=== PATIENT | female | born 1980 | race Caucasian/White ===

== ENCOUNTER 2022-09-13 11:15 | Outpatient (CLI) | payer MEDICAID ==
[2022-09-13 17:40] LABS: BASOPHILS % (AUTO) 0.4 %; EOSINOPHILS # (AUTO) 0.1 10^3/uL (0.0-0.7); EOSINOPHILS % (AUTO) 0.9 %; HCT - HEMATOCRIT 43.3 % (37.0-47.0); HGB - HEMOGLOBIN 13.9 g/dL (12.0-16.0); LYMPHOCYTES # (AUTO) 4.2 10^3/uL (1.5-3.5); LYMPHOCYTES % (AUTO) 40.8 %; MEAN CORPUSCULAR HEMOGLOBIN 30.3 pg (27.0-31.0); MEAN CORPUSCULAR HGB CONC 32.1 g/dL (32.0-36.0); MEAN CORPUSCULAR VOLUME 94.5 fL (81.0-99.0); MEAN PLATELET VOLUME 10.3 fL (7.9-10.8); MONOCYTES # (AUTO) 0.6 10^3/uL (0.0-1.0); MONOCYTES % (AUTO) 6.1 %; NEUTROPHILS # (AUTO) 5.3 10^3/uL (1.5-6.6); NEUTROPHILS % (AUTO) 51.6 %; PLT - PLATELET COUNT 312 10^3/uL (130-450); RED BLOOD COUNT 4.58 10^6/uL (4.20-5.40); RED CELL DISTRIBUTION WIDTH 14.6 % (12.0-15.0); WHITE BLOOD COUNT 10.2 x10^3/uL (4.8-10.8)
[2022-09-13 17:46] LABS: ALBUMIN 3.8 g/dL (3.2-5.5); BILIRUBIN,TOTAL 0.3 mg/dL (0.2-1.0); CALCIUM 9.1 mg/dL (8.5-10.3); TOTAL PROTEIN 7.5 g/dL (6.7-8.2)
== END 2022-09-13 11:30 | disposition home or self-care (01) ==
LOC: LAB.N 11:15
PROVIDERS: ATTEND Physician Assistant
DX: R22.0 Localized swelling, mass and lump, head (principal)
CPT/HCPCS: 36415; 80053; 83690; 85025

== ENCOUNTER 2022-12-17 07:05 | Outpatient (CLI) | payer MEDICAID | END 2022-12-17 23:59 | disposition short-term general hospital (02) | LOC: EMS 07:05 | DX: K62.5 Hemorrhage of anus and rectum (principal); R42 Dizziness and giddiness; R55 Syncope and collapse | CPT/HCPCS: A0425; A0429; A0999 ==

== ENCOUNTER 2023-08-25 13:28 | Outpatient (CLI) | payer MEDICAID | END 2023-08-25 23:59 | disposition critical access hospital (66) | LOC: EMS 13:28 | DX: R10.12 Left upper quadrant pain (principal); R10.32 Left lower quadrant pain; R10.812 Left upper quadrant abdominal tenderness; R10.814 Left lower quadrant abdominal tenderness; R11.0 Nausea | CPT/HCPCS: A0425; A0427; A0999 ==

== ENCOUNTER 2023-08-25 13:45 | Emergency (ER) | payer MEDICAID ==
[2023-08-25] MEDS ORDERED: SODIUM CHLORIDE 0.9% 1,000 ML IV STA (14:05)
[2023-08-25] MEDS ORDERED: MORPHINE 2 MG/ML CARPUJECT IVP STA (14:05)
[2023-08-25 14:11] LABS: BASOPHILS % (AUTO) 0.2 %; EOSINOPHILS # (AUTO) 0.5 10^3/uL (0.0-0.7); EOSINOPHILS % (AUTO) 6.6 %; HCT - HEMATOCRIT 37.8 % (37.0-47.0); HGB - HEMOGLOBIN 12.1 g/dL (12.0-16.0); LYMPHOCYTES # (AUTO) 3.6 10^3/uL (1.5-3.5); LYMPHOCYTES % (AUTO) 44.6 %; MEAN CORPUSCULAR HEMOGLOBIN 29.4 pg (27.0-31.0); MEAN PLATELET VOLUME 9.7 fL (7.9-10.8); MONOCYTES # (AUTO) 0.4 10^3/uL (0.0-1.0); NEUTROPHILS # (AUTO) 3.5 10^3/uL (1.5-6.6); NEUTROPHILS % (AUTO) 43.4 %; PLT - PLATELET COUNT 252 10^3/uL (130-450); RED BLOOD COUNT 4.11 10^6/uL (4.20-5.40); RED CELL DISTRIBUTION WIDTH 13.7 % (12.0-15.0); WHITE BLOOD COUNT 8.1 x10^3/uL (4.8-10.8)
[2023-08-25] MEDS ORDERED: ONDANSETRON 4 MG/2 ML VIAL IVP STA (14:19)
[2023-08-25 14:22] LABS: BILIRUBIN,URINE NEGATIVE (NEGATIVE); GLUCOSE, URINE (UA) NEGATIVE (NEGATIVE); KETONES,URINE (UA) NEGATIVE (NEGATIVE); LEUKOCYTE ESTERASE, URINE NEGATIVE (NEGATIVE); NITRITE,URINE NEGATIVE (NEGATIVE); OCCULT BLOOD,URINE NEGATIVE (NEGATIVE); PROTEIN,URINE NEGATIVE (NEGATIVE); UROBILINOGEN,URINE 0.2 (NORMAL) E.U./dL (NORMAL)
[2023-08-25 14:23] LABS: CLARITY,URINE CLEAR (CLEAR)
[2023-08-25 14:25] LABS: ALBUMIN 3.6 g/dL (3.2-5.5); ALBUMIN/GLOBULIN RATIO 1.3 (1.0-2.2); BILIRUBIN,TOTAL 0.2 mg/dL (0.2-1.0); CALCIUM 8.9 mg/dL (8.5-10.3); POTASSIUM 3.9 mmol/L (3.5-4.5); TOTAL PROTEIN 6.4 g/dL (6.4-8.9)
[2023-08-25] MEDS ORDERED: iohexoL-300 100 ML VIAL ONE (14:40)
--- NOTE | 2023-08-25 14:57 | ED Physician Documentation ---
PD HPI ABD PAIN - Stated complaint Stated Complaint: LLQ ABD PX - Chief complaint Chief Complaint: Abd Pain - History obtained from History obtained from: Patient - Additional information Additional information: Patient is a 43-year-old female presenting for evaluation of left-sided abdominal pain starting after lunch today. Patient states having a ham and cheese for lunch. She has associated nausea. She reports having nausea in the morning for the last few days. Denies any known sick contacts. Reports feeling feverish yesterday morning. No cough, congestion, chest pain or shortness of air. Denies dysuria. No hematuria or vaginal discharge. Has a history of a tubal ligation. Denies other abdominal surgeries. EMS administered IV Toradol and Zofran. Review of Systems Constitutional: reports: Fever Cardiac: denies: Chest pain / pressure Respiratory: denies: Dyspnea GI: reports: Abdominal Pain, Nausea. denies: Vomiting : denies: Dysuria PD PAST MEDICAL HISTORY - Present Medications Home Medications: Ambulatory Orders Medication Instructions Recorded Confirmed Ondansetron Odt [Zofran] 4 mg TL Q6H PRN #10 tablet 08/25/23 polyethylene glycoL 3350 [Miralax] 17 gm PO DAILY PRN #14 packet 08/25/23 - Allergies Allergies/Adverse Reactions: Allergies Allergy/AdvReac Type Severity Reaction Status Date / Time amoxicillin AdvReac Unknown Verified 08/25/23 13:56 Sulfa (Sulfonamide AdvReac Unknown Verified 08/25/23 13:56 Antibiotics) PD ED PE NORMAL - General General: Alert and oriented X 3, No acute distress, Well developed/nourished - HEENT HEENT: Atraumatic, Moist mucous membranes, Pharynx benign - Neck Neck: Supple, no meningeal sign - Cardiac Cardiac: RRR, Strong equal pulses - Respiratory Respiratory: No respiratory distress, Clear bilaterally - Abdomen Abdomen: Normal bowel sounds, Soft, Non distended, Other (Left upper and lower quadrant tenderness to palpation) - Derm Derm: Warm and dry - Neuro Neuro: Normal speech Results - Vitals Vitals: Vital Signs - 24 hr 08/25/23 08/25/23 08/25/23 13:52 15:35 16:19 Temperature 37.0 C 35.5 C L Heart Rate 60 55 L 57 L Respiratory 17 15 19 Rate Blood Pressure 108/85 H 95/69 97/69 O2 Saturation 94 96 97 Oxygen O2 Source Room air - Labs Labs: Laboratory Tests 08/25/23 08/25/23 08/25/23 14:02 14:02 14:14 WBC 8.1 RBC 4.11 L Hgb 12.1 Hct 37.8 MCV 92.0 MCH 29.4 MCHC 32.0 RDW 13.7 Plt Count 252 MPV 9.7 Neut # (Auto) 3.5 Lymph # (Auto) 3.6 H [place] # (Auto) 0.4 Eos # (Auto) 0.5 Baso # (Auto) 0.0 Absolute Nucleated RBC 0.00 Nucleated RBC % 0.0 Sodium 138 Potassium 3.9 Chloride 103 Carbon Dioxide 32 Anion Gap 3.0 L BUN 11 Creatinine 1.0 Estimated GFR (MDRD) 61 L Glucose 104 Calcium 8.9 Total Bilirubin 0.2 AST 11 ALT 8 L Alkaline Phosphatase 47 Total Protein 6.4 Albumin 3.6 Globulin 2.8 Albumin/Globulin Ratio 1.3 Lipase 32 Urine Color YELLOW Urine Clarity CLEAR Urine pH 6.0 Ur Specific [place] >=1.030 H Urine Protein NEGATIVE Urine Glucose (UA) NEGATIVE Urine Ketones NEGATIVE Urine Occult Blood NEGATIVE Urine Nitrite NEGATIVE Urine Bilirubin NEGATIVE Urine Urobilinogen 0.2 (NORMAL) Ur Leukocyte Esterase NEGATIVE Ur Microscopic Review NOT INDICATED Urine Culture Comments NOT INDICATED Urine HCG, Qual 08/25/23 14:14 WBC RBC Hgb Hct MCV MCH MCHC RDW Plt Count MPV Neut # (Auto) Lymph # (Auto) [place] # (Auto) Eos # (Auto) Baso # (Auto) Absolute Nucleated RBC Nucleated RBC % Sodium Potassium Chloride Carbon Dioxide Anion Gap BUN Creatinine Estimated GFR (MDRD) Glucose Calcium Total Bilirubin AST ALT Alkaline Phosphatase Total Protein Albumin Globulin Albumin/Globulin Ratio Lipase Urine Color Urine Clarity Urine pH Ur Specific [place] Urine Protein Urine Glucose (UA) Urine Ketones Urine Occult Blood Urine Nitrite Urine Bilirubin Urine Urobilinogen Ur Leukocyte Esterase Ur Microscopic Review Urine Culture Comments Urine HCG, Qual NEGATIVE PD Medical Decision Making - ED course Complexity details: reviewed results, re-evaluated patient, d/w patient ED course: Patient is a 43-year-old female presenting for evaluation of left-sided abdo eamon pain with nausea. She has mild tenderness noted on exam. Prior tubal ligation. CBC, chemistry, urinalysis were obtained and reviewed without significant findings. She is not . CT of the abdomen and pelvis was obtained which I reviewed. No acute findings. There is a moderate amount of stool burden. Repeat abdominal exam is benign. Initial pain controlled with IV morphine and IV Zofran along with fluids.Patient states that she usually has hard small stools. Discussed recommendations for her constipation which she is agreeable to. Patient is advised on need for close follow-up as well as concerning symptoms to return for. Departure - Departure Disposition: 01 Home, Self Care Clinical Impression: Left sided abdominal pain, Constipation Condition: Stable Instructions: ED Constipation Prescriptions: polyethylene glycoL 3350 [Miralax] 17 gm PO DAILY PRN #14 packet PRN Reason: Constipation Ondansetron Odt [Zofran] 4 mg TL Q6H PRN #10 tablet PRN Reason: Nausea / Vomiting Comments: Your labs are reassuring. Your CT scan does not show any infection or surgical process but you do have a large amount of stool in your intestines. This may be the source of your pain. I am sending a prescription for MiraLAX to help with the constipation along with antinausea medication to [facility] in [place]. I would recommend sticking with a bland or liquid diet today and advancing as tolerated. Please use the MiraLAX as directed. Return to the ER with any worsening. Please have close follow-up with your primary care doctor in the next week. Forms: PCP List Discharge Date/Time: 08/25/23 16:30
[2023-08-25 15:03] LABS: HCG UR QUAL NEGATIVE
[2023-08-25] MEDS ORDERED: iohexoL-300 100 ML VIAL IVP ONE (15:24)
--- NOTE | 2023-08-25 15:57 | CT Report ---
PROCEDURE: Abdomen/Pelvis W INDICATIONS: L sided pain/vomiting CONTRAST: Omni 300 100ml TECHNIQUE: After the administration of intravenous contrast, a CT scan of the abdomen and pelvis was performed. Images were recorded and evaluated at appropriate window settings. Reformats: coronal and sagittal. F or radiation dose reduction, the following was used: automated exposure control, adjustment of mA and /or kV according to patient size. COMPARISON: None. FINDINGS: Image quality: Excellent. Lung bases and heart: Unremarkable. Liver: No solid mass. Gallbladder and biliary tree: Gallbladder is contracted, within normal limits. Spleen: No splenomegaly. Pancreas: No pancreatic ductal dilation. Adrenals: No adrenal nodule. Kidneys and ureters: No hydronephrosis. No renal cystic lesion which requires follow up. No solid mas s. Bowel and peritoneum: No bowel distension. No pathologic free fluid. Moderately large fecal load. Mil d pelvic ascites is likely physiologic. Normal gas containing appendix. Lymph nodes: No central or retroperitoneal adenopathy. Vessels: No infrarenal aortic aneurysm. PELVIS Reproductive organs: Retroverted uterus. No adnexal masses noted. Bladder: No abnormal wall thickening, accounting for underdistention. Pelvic lymph nodes: No pelvic adenopathy by size criteria. Bones: No aggressive osseous abnormality. Other: No significant ventral or inguinal hernia. IMPRESSION: 1. Moderately large fecal load. 2. Physiologic pelvic fluid. 3. No acute abdominal process noted. Reviewed by: Leo Santoro MD on 08/25/2023 3:55 PM PST Approved by: Leo Santoro MD on 08/25/2023 3:55 PM PST Station ID: [id number]
[2023-08-25 16:27] VITALS: BP 97/69; O2SAT 97
== END 2023-08-25 16:30 | disposition home or self-care (01) ==
LOC: EDUNIT# → ED 13:45
DX: R10.32 Left lower quadrant pain (principal); K59.00 Constipation, unspecified
CPT/HCPCS: 36415; 74177; 80053; 81003; 81025; 83690; 85025; 96374; 96375; 99284; Q9967; 81001; 87086